=== PATIENT | female | born 1985 | race Caucasian/White ===

== ENCOUNTER 2016-11-11 06:19 | Emergency (ER) | payer OTHER ==
[2016-11-11 07:11] VITALS: TEMP 97.9; BMI 29.2
[2016-11-11 07:43] LABS: URINE APPEARANCE CLOUDY; URINE BILIRUBIN NEGATIVE (NEGATIVE); URINE COLOR YELLOW; URINE GLUCOSE (UA) NEGATIVE (NEGATIVE); URINE KETONE NEGATIVE (NEGATIVE); URINE NITRITE POSITIVE (NEGATIVE); URINE UROBILINOGEN NEGATIVE E.U./dl (0.2-1.0)
[2016-11-11 07:48] LABS: URINE BLOOD 3+ (NEGATIVE); URINE LEUK ESTERASE 3+ (NEGATIVE); URINE PROTEIN 2+ (NEGATIVE)
[2016-11-11 07:51] LABS: URINE BACTERIA RARE /hpf (NONE SEEN); URINE MUCUS RARE; URINE RBC 336 /hpf (0-3); URINE WBC 916 /hpf (3-5); YEAST MODERATE
[2016-11-11] MEDS ORDERED: CEPHALEXIN MONOHYDRATE 500 MG CAPSULE (UD) PO ONE (07:51)
[2016-11-11] MEDS ORDERED: PHENAZOPYRIDINE HCL 100 MG TABLET (FP) PO ONE (07:51)
--- NOTE | 2016-11-11 07:52 | PDOC ---
History of Present Illness - General History Source: Patient Exam Limitations: No Limitations - History of Present Illness Initial Comments: 11/11/16 07:55 The patient is a 31 year old female with no significant past medical history who presents to the ED with complaints of dysuria and lower abdominal pain that began yesterday. She qualifies the pain as a pressure-like sensation. She also reports feeling febrile, but denies recording her temperature at home. She denies any nausea, vomiting, diarrhea. She denies any hematuria, urgency or frequency. The patient denies any flank pain. <Supriya Gleason - Last Filed: 11/11/16 07:59> <Charisma Pena - Last Filed: 11/12/16 10:04> - General Stated Complaint: ABD PAIN,URINARY PROBLEM Time Seen by Provider: 11/11/16 07:17 Past History <Supriya Gleason - Last Filed: 11/11/16 07:59> - Past Medical History Anemia: No Asthma: No Cancer: No Cardiac Disorders: No CVA: No COPD: No DVT: No Dementia: No Diabetes: No Dialysis: No GI Disorders: No Disorders: No HTN: No Hypercholesterolemia: No HIV: No Kidney Stones: No Liver Disease: No Psychiatric Problems: No Seizures: No Thyroid Disease: No Lung CA: No - Surgical History Abdominal Surgery: No Appendectomy: No Cardiac Surgery: No Cholecystectomy: No Gastric Stapling: No GI Surgery: No Lung Surgery: No Neurologic Surgery: No - Reproductive History (#): 1 Para: 2 Therapeutic (s) & number: No Spontaneous : 0 - Psycho/Social/Smoking Cessation Hx Anxiety: No Suicidal Ideation: No Smoking History: Never smoked Have you smoked in the past 12 months: No Information on smoking cessation initiated: No Hx Alcohol Use: No Drug/Substance Use Hx: No Substance Use Type: Alcohol Hx Substance Use Treatment: No <Charisma Pena - Last Filed: 11/12/16 10:04> - Past Medical History Allergies/Adverse Reactions: Allergies Allergy/AdvReac Type Severity Reaction Status Date / Time No Known Drug Allergies Allergy Verified 04/03/16 07:55 Home Medications: Ambulatory Orders Cephalexin Monohydrate [Keflex -] 500 mg PO BID #14 capsule 11/11/16 Review of Systems - Review of Systems Able to Perform ROS?: Yes Comments:: 11/11/16 07:55 GENERAL/CONSTITUTIONAL: No fever or chills. No weakness. HEAD, EYES, EARS, NOSE AND THROAT: No change in vision. No ear pain or discharge. No sore throat. CARDIOVASCULAR: No chest pain or shortness of breath. RESPIRATORY: No cough, wheezing, or hemoptysis. GASTROINTESTINAL: Present: lower abdominal pain No nausea, vomiting, diarrhea or constipation. GENITOURINARY: Present: dysuria No frequency, or change in urination. MUSCULOSKELETAL: No joint or muscle swelling or pain. No neck or back pain. SKIN: No rash NEUROLOGIC: No headache, vertigo, loss of consciousness, or change in strength/ sensation. ENDOCRINE: No increased thirst. No abnormal weight change. HEMATOLOGIC/LYMPHATIC: No anemia, easy bleeding, or history of blood clots. ALLERGIC/IMMUNOLOGIC: No hives or skin allergy. All Other Systems: Reviewed and Negative <Supriya Gleason - Last Filed: 11/11/16 07:59> *Physical Exam - Vital Signs Last Vital Signs Temp Pulse Resp BP Pulse Ox 97.9 F 109 H 18 104/68 100 11/11/16 07:01 11/11/16 07:01 11/11/16 07:01 11/11/16 07:01 11/11/16 07:01 - Physical Exam Comments: 11/11/16 07:56 GENERAL: Awake, alert, and fully oriented, in no acute distress HEAD: No signs of trauma EYES: PERRLA, EOMI, sclera anicteric, conjunctiva clear ENT: Auricles normal inspection, hearing grossly normal, nares patent, oropharynx clear without exudates. Moist mucosa NECK: Normal ROM, supple, no lymphadenopathy, JVD, or masses LUNGS: Breath sounds equal, clear to auscultation bilaterally. No wheezes, and no crackles HEART: Regular rate and rhythm, normal S1 and S2, no murmurs, rubs or gallops ABDOMEN: Soft, superpubic tenderness to palpation, normoactive bowel sounds. No guarding, no rebound. No masses EXTREMITIES: Normal range of motion, no edema. No clubbing or cyanosis. No cords, erythema, or tenderness NEUROLOGICAL: Cranial nerves II through XII grossly intact. Normal speech, normal gait SKIN: Warm, Dry, normal turgor, no rashes or lesions noted. <Supriya Gleason - Last Filed: 11/11/16 07:59> - Vital Signs Last Vital Signs Temp Pulse Resp BP Pulse Ox 97.9 F 109 H 18 104/68 100 11/11/16 07:01 11/11/16 07:01 11/11/16 07:01 11/11/16 07:01 11/11/16 07:01 <Charisma Pena - Last Filed: 11/12/16 10:04> ED Treatment Course - ADDITIONAL ORDERS Additional order review: Laboratory Results 11/11/16 07:32 Urine Color Yellow Urine Appearance Cloudy Urine pH 5.0 Urine Protein 2+ H Urine Glucose (UA) Negative Urine Ketones Negative Urine Blood 3+ H Urine Nitrite Positive Urine Bilirubin Negative Urine Urobilinogen Negative Ur Leukocyte Esterase 3+ H Urine HCG, Qual Negative <Supriya Gleason - Last Filed: 11/11/16 07:59> - ADDITIONAL ORDERS Additional order review: Laboratory Results 11/11/16 07:32 Urine Color Yellow Urine Appearance Cloudy Urine pH 5.0 Urine Protein 2+ H Urine Glucose (UA) Negative Urine Ketones Negative Urine Blood 3+ H Urine Nitrite Positive Urine Bilirubin Negative Urine Urobilinogen Negative Ur Leukocyte Esterase 3+ H Urine HCG, Qual Negative <Charisma Pena - Last Filed: 11/12/16 10:04> Medical Decision Making - Medical Decision Making Pt afebrile, no vomiting, and no CVAT. Will treat with PO abx. Stable for DC home. <Charisma Pena - Last Filed: 11/12/16 10:04> *DC/Admit/Observation/Transfer - Attestations Scribe Attestion: 11/11/16 07:56 Documentation prepared by Supriya Gleason, acting as medical advisor for Charisma Pena MD. <Supriya Gleason - Last Filed: 11/11/16 07:59> - Discharge Dispostion Admit: No <Charisma Pena - Last Filed: 11/12/16 10:04> Diagnosis at time of Disposition: UTI (urinary tract infection) Qualifiers: Urinary tract infection type: acute cystitis Hematuria presence: without hematuria Qualified Code(s): N30.00 - Acute cystitis without hematuria - Discharge Dispostion Disposition: HOME Condition at time of disposition: Stable - Prescriptions Prescriptions: Cephalexin Monohydrate [Keflex -] 500 mg PO BID #14 capsule - Referrals Referrals: Rita Vanessa MD [Primary Care Provider] - - Patient Instructions Printed Discharge Instructions: DI for Urinary Tract Infection (UTI) Additional Instructions: FOR THE PAIN, YOU CAN TAKE IBUPROFEN, OR ALSO CAN USE AZO, WHICH IS AVAILABLE OVER THE COUNTER. THE AZO WILL HELP WITH THE BURNING, BUT YOUR URINE AND SWEAT WILL TURN ORANGE.
[2016-11-11] MEDS ORDERED: CEPHALEXIN MONOHYDRATE 250 MG CAPSULE (FP) ONE (07:57)
[2016-11-11] MEDS ORDERED: PHENAZOPYRIDINE HCL 100 MG TABLET (FP) ONE (07:57)
[2016-11-11 08:09] VITALS: BP 136/82; PULSE 75
== END 2016-11-11 08:14 | disposition home or self-care (01) ==
LOC: JER 06:19
DX: N30.00 Acute cystitis without hematuria (principal); B96.89 Other specified bacterial agents as the cause of diseases classified elsewhere
CPT/HCPCS: 81003; 81015; 84703; 87086; 87186; 99283-25

== ENCOUNTER 2017-06-21 02:11 | Emergency (ER) | payer OTHER ==
[2017-06-21 02:54] VITALS: BP 105/57; PULSE 75; TEMP 99.6
--- NOTE | 2017-06-21 03:58 | PDOC ---
History of Present Illness - General Chief Complaint: Diarrhea Stated Complaint: STOMACH PAIN/DIARRHEA Time Seen by Provider: 06/21/17 03:53 - History of Present Illness Initial Comments: 06/21/17 03:57 32 yo F with no significant pmh who presents with diarrhea. Patient reports acute onset of abdominal pain this AM with two episodes of watery, non bloody, stools. Also endorses sharp midline, unremitting, lower abdominal pain with no identifiable triggers or alleviators. No postprandial pain. No change in diet or recent traveling. Denies N/V, dysuira hematuria,pelvic pain, vaginal bleeding , dysmennorhea, CP, SOB, lightheadedness. Patient reports two flu + children sick contacts. Myomectomy and L ovarian cystectomy 2016. Denies h/o tobacco use or alcohol use. Past History - Past Medical History Allergies/Adverse Reactions: Allergies Allergy/AdvReac Type Severity Reaction Status Date / Time No Known Drug Allergies Allergy Verified 06/21/17 02:51 Home Medications: Ambulatory Orders Cephalexin [Keflex] 500 mg PO BID 7 Days #13 capsule MDD 2 Tab 06/21/17 Anemia: No Asthma: No Cancer: No Cardiac Disorders: No CVA: No COPD: No DVT: No Dementia: No Diabetes: No Dialysis: No GI Disorders: No Disorders: No HTN: No Hypercholesterolemia: No Kidney Stones: No Liver Disease: No Psychiatric Problems: No Seizures: No Thyroid Disease: No Lung CA: No - Surgical History Abdominal Surgery: No Appendectomy: No Cardiac Surgery: No Cholecystectomy: No Gastric Stapling: No GI Surgery: No Lung Surgery: No Neurologic Surgery: No - Reproductive History (#): 1 Para: 2 Therapeutic (s) & number: No Spontaneous : 0 - Suicide/Smoking/Psychosocial Hx Smoking History: Never smoked Have you smoked in the past 12 months: No Information on smoking cessation initiated: No Hx Alcohol Use: No Drug/Substance Use Hx: No Substance Use Type: Alcohol Hx Substance Use Treatment: No Review of Systems - Review of Systems Comments:: 06/21/17 03:57 GENERAL/CONSTITUTIONAL: No fever or chills. No weakness. HEAD, EYES, EARS, NOSE AND THROAT: No change in vision. No ear pain or discharge. No sore throat.- CARDIOVASCULAR: No chest pain or shortness of breath RESPIRATORY: No cough, wheezing, or hemoptysis. GASTROINTESTINAL: + abdominal pain and diarrhea. No nausea, vomiting, constipation. GENITOURINARY: No dysuria, frequency, or change in urination. MUSCULOSKELETAL: No joint or muscle swelling or pain. No neck or back pain. SKIN: No rash NEUROLOGIC: No headache, vertigo, loss of consciousness, or change in strength/ sensation. ENDOCRINE: No increased thirst. No abnormal weight change HEMATOLOGIC/LYMPHATIC: No anemia, easy bleeding, or history of blood clots. ALLERGIC/IMMUNOLOGIC: No hives or skin allergy. *Physical Exam - Vital Signs Last Vital Signs Temp Pulse Resp BP Pulse Ox 99.6 F 75 20 105/57 100 06/21/17 02:52 06/21/17 02:52 06/21/17 02:52 06/21/17 02:52 06/21/17 02:52 - Physical Exam Comments: 06/21/17 03:58 GENERAL: Awake, alert, and fully oriented, in no acute distress HEAD: No signs of trauma, normocephalic, atraumatic EYES: PERRLA, EOMI, sclera anicteric, conjunctiva clear ENT: Hearing grossly normal, nares patent, oropharynx clear without exudates. Moist mucosa NECK: Normal ROM, supple, no lymphadenopathy, JVD, or masses LUNGS: No distress, speaks full sentences, clear to auscultation bilaterally HEART: Regular rate and rhythm, normal S1 and S2, no murmurs, rubs or gallops, peripheral pulses normal and equal bilaterally. ABDOMEN: Soft, suprapubic ttp. RUQ>RLQ ttp. R flank pain. Normoactive bowel sounds. No guarding, no rebound. No masses. Neg rigidity.Neg EXTREMITIES : Normal inspection, Normal range of motion, no edema. No clubbing or cyanosis. SKIN: Warm, Dry, normal turgor, no rashes or lesions noted. ED Treatment Course - LABORATORY CBC & Chemistry Diagram: 06/21/17 05:05 06/21/17 05:05 Medical Decision Making - Medical Decision Making 06/21/17 04:49 32 yo F with no significant pmh who presents with acute onset of sharp, midline , unremitting, lower abdominal pain this AM with two episodes of watery, non bloody, stools. No identifiable triggers or alleviators. . No change in diet or recent traveling. Denies N/V, dysuria, hematuria, pelvic pain, vaginal bleeding , dysmennorhea, CP, SOB, lightheadedness. Denies alcohol use. Physical exam with RUQ>RLQ ttp and suprapubic ttp. Hemodynamically stable. DDx: Viral gastroenteritis, UTI, choleycystitis ED Course: CBC, CMP, Lipase, UA, BHCG RUQ U/S 06/21/17 05:44 UA: Nitrite +, 3 + blood, 2 + Leuk esterase 06/21/17 05:53 Cephalexin 500 mg PO 06/21/17 06:09 CBC: Unremarkable 06/21/17 06:12 Patient refused CBC. Blood work hemolyzed. Patient stable for discharge with return precautions. Sent Keflex to pharmacy. *DC/Admit/Observation/Transfer Diagnosis at time of Disposition: Cystitis - Discharge Dispostion Disposition: HOME Condition at time of disposition: Stable Admit: No - Prescriptions Prescriptions: Cephalexin [Keflex] 500 mg PO BID 7 Days #13 capsule MDD 2 Tab - Referrals - Patient Instructions Printed Discharge Instructions: DI for Hemorrhagic Cystitis Additional Instructions: Please return to the emergency department with any new or worsening symptoms or concerns. Please take Keflex two times a day for 7 days. Please follow up with your primary care physician within one week. - Post Discharge Activity - Attestations Physician Attestion: 06/21/17 06:11 I attest to the documentation provided in this note.
[2017-06-21] MEDS ORDERED: SODIUM CHLORIDE 1,000 ML IV STA (04:36)
[2017-06-21 04:54] LABS: URINE APPEARANCE SLCLOUDY; URINE BILIRUBIN NEGATIVE (NEGATIVE); URINE BLOOD 3+ (NEGATIVE); URINE COLOR YELLOW; URINE GLUCOSE (UA) NEGATIVE (NEGATIVE); URINE KETONE NEGATIVE (NEGATIVE); URINE NITRITE POSITIVE (NEGATIVE); URINE UROBILINOGEN NEGATIVE mg/dL (0.2-1.0)
[2017-06-21 05:02] LABS: URINE LEUK ESTERASE 2+ (NEGATIVE); URINE PROTEIN 2+ (NEGATIVE)
[2017-06-21 05:04] LABS: EPI CELLS RARE /HPF (FEW); URINE BACTERIA MANY /hpf (NONE SEEN); URINE MUCUS RARE; YEAST MODERATE
--- NOTE | 2017-06-21 05:23 | PDOC ---
Attending Attestation - HPI HPI: 06/21/17 05:30 Patient is a 32F, with PMHx of myomectomy 1 year ago, fibroids, who presents with lower abdominal pain earlier today. Patients presents with acute onset, sharp, lower abdominal pain since this morning. She also reports two episodes of non-bloody watery stools. Denies diet changes. Patient also admits to subjective fevers at home. Patient reports sick contact - states sister has flu. Denies recent nausea, vomiting, urinary complaints, pelvic pain, vaginal bleeding. <Natalie Lim - Last Filed: 06/21/17 05:30> - Resident Resident Name: Jeffery Vicente - ED Attending Attestation I have performed the following: I have examined & evaluated the patient, The case was reviewed & discussed with the resident, I agree w/resident's findings & plan, Exceptions are as noted - Physicial Exam PE: 06/21/17 19:52 *Physical Exam General Appearance: Yes: Appropriately Dressed. No: Apparent Distress, Intoxicated HEENT: positive: EOMI, KATHERYN, Normal ENT Inspection, Normal Voice, TMs Normal, Pharynx Normal. negative: Pale Conjunctivae, Photophobia, Scleral Icterus (R), Scleral Icterus (L) Neck: positive: Trachea midline, Normal Thyroid, Supple. negative: Tender, Rigid, Carotid bruit, Stridor, Lymphadenopathy (R), Lymphadenopathy (L), Thyromegaly Respiratory/Chest: positive: Lungs Clear, Normal Breath Sounds. negative: Chest Tender, Respiratory Distress, Accessory Muscle Use, Labored Respiration, RES, Crackles, Rales, Rhonchi, Stridor, Wheezing, Dullness Cardiovascular: positive: Regular Rhythm, Regular Rate, S1, S2. negative: Edema , JVD, Murmur, Bradycardia, Tachycardia Vascular Pulses: Dorsalis-Pedis (R): 2+, Doralis-Pedis (L): 2+ Gastrointestinal/Abdominal: positive: Normal Bowel Sounds, Flat, Soft. negative : Tender, Organomegaly, Pulsatile Mass, Increased Bowel Sounds, Decreased BS, Distended, Guarding, Rebound, Hernia, Hepatomegaly, Spleenomegaly Lymphatic: negative: Adenopathy, Tenderness Musculoskeletal: positive: Normal Inspection. negative: CVA Tenderness, Decreased Range of Motion Extremity: positive: Normal Capillary Refill, Normal Inspection, Normal Range of Motion, Pelvis Stable. negative: Tender, Pedal Edema, Swelling, Erythema Integumentary: positive: Normal Color, Dry, Warm. 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 negative: EOM Palsy, Facial Droop, Sensory Deficit* Physical Exam - Medical Decision Making 06/21/17 19:53 Pt treated and released <Manolo Ritchie - Last Filed: 06/21/17 19:53>
[2017-06-21] MEDS ORDERED: CEPHALEXIN 250 MG/5 ML ORAL SUSPENSION PO ONE (05:48)
[2017-06-21 05:49] LABS: BASO % 0.6 % (0-2.0); EOS % 1.3 % (0-4.5); HEMATOCRIT 40.4 % (32.4-45.2); HEMOGLOBIN 13.6 GM/dL (10.7-15.3); LYMPH % 10.2 % (8-40); MCH 28.3 pg (25.7-33.7); MCHC 33.7 g/dl (32.0-36.0); MEAN PLT VOLUME 8.9 fl (7.5-11.1); MONO % 4.3 % (3.8-10.2); NEUT % 83.6 % (42.8-82.8); PLATELET COUNT 296 K/MM3 (134-434); RBC 4.81 M/mm3 (3.60-5.2); RDW 13.4 % (11.6-15.6)
[2017-06-21] MEDS ORDERED: CEPHALEXIN MONOHYDRATE 250 MG CAPSULE (FP) ONE (05:55)
== END 2017-06-21 06:38 | disposition home or self-care (01) ==
LOC: JER 02:11
PROC: 3E0337Z Introduction of Electrolytic and Water Balance Substance into Peripheral Vein, Percutaneous Approach (ICD-10-PCS; principal; 2017-06-21)
DX: N30.00 Acute cystitis without hematuria (principal)
CPT/HCPCS: 36415; 81003; 81015; 84703; 85025; 87804; 99283-25

== ENCOUNTER 2017-06-24 16:13 | Emergency (ER) | payer OTHER ==
[2017-06-24 16:32] VITALS: BP 137/85; PULSE 122; TEMP 99.3; BMI 30.9
--- NOTE | 2017-06-24 17:17 | PDOC ---
History of Present Illness - General Chief Complaint: Sore Throat Stated Complaint: COLD SYMPTOMS History Source: Patient Exam Limitations: No Limitations - History of Present Illness Initial Comments: 06/24/17 17:17 This 32-year-old female presents to the emergency room with complaints of fever , chills, tiredness and not feeling well with a runny nose for the last 2 days. She was seen here as well as her younger daughters and found to have positive flu in the children and a positive UTI for her. They had been treated with Tamiflu and now she is showing the symptoms of her children's flu. Past History - Past Medical History Allergies/Adverse Reactions: Allergies Allergy/AdvReac Type Severity Reaction Status Date / Time No Known Drug Allergies Allergy Verified 06/24/17 16:32 Home Medications: Ambulatory Orders Cephalexin [Keflex] 500 mg PO BID 7 Days #14 capsule MDD 2 Tab 06/21/17 Oseltamivir Phosphate [Tamiflu] 75 mg PO BID 5 Days #10 capsule 06/24/17 Anemia: No Asthma: No Cancer: No Cardiac Disorders: No CVA: No COPD: No DVT: No Dementia: No Diabetes: No Dialysis: No GI Disorders: No Disorders: No HTN: No Hypercholesterolemia: No Kidney Stones: No Liver Disease: No Psychiatric Problems: No Seizures: No Thyroid Disease: No Lung CA: No - Surgical History Abdominal Surgery: No Appendectomy: No Cardiac Surgery: No Cholecystectomy: No Gastric Stapling: No GI Surgery: No Lung Surgery: No Neurologic Surgery: No - Reproductive History (#): 1 Para: 2 Therapeutic (s) & number: No Spontaneous : 0 - Suicide/Smoking/Psychosocial Hx Smoking History: Never smoked Have you smoked in the past 12 months: No Hx Alcohol Use: No Drug/Substance Use Hx: No Substance Use Type: Alcohol Hx Substance Use Treatment: No Review of Systems - Review of Systems Able to Perform ROS?: Yes Comments:: 06/24/17 17:18 General statement: flu symptoms Hematology: neg history of bleeding/blood thinners Skin: Neg for lesions, rash, bruising. HEENT: Neg symptoms Respiratory: Neg SOB or difficulty in breathing Cardiac: Neg chest pain GI: Neg pain, n/v : Neg problems on voiding MS: Neg for joint pain/stiffness, no edema Neuro: Neg for LOC, weakness, Endocrine: Neg for excess thirst/hunger, cold/heat intolerance, excess sweating Allergies: Neg for allergies *Physical Exam - Vital Signs Last Vital Signs Temp Pulse Resp BP Pulse Ox 99.3 F 122 H 20 137/85 99 06/24/17 16:29 06/24/17 16:29 06/24/17 16:29 06/24/17 16:29 06/24/17 16:29 - Physical Exam Comments: 06/24/17 17:19 General Appearance: This ill-appearing V/S: hemodynamically stable, febrile Skin: WNL of pt's skin color, no signs of pallor, mottling, cyanosis Head:symmetrical Eyes: EOM's intact, PERRLA Ears: denies pain Nose: patent Throat: lips, teeth, gums, tongue, buccal mucos pink and moist Lungs: Chest symmetry equal. Cap refill <3 seconds. Lung sounds clear Cardiac: PMI at R 4MCL space, pos S1 and S2, regular rate. Abdomen: Soft, round, nontender : Not observed Muscularskeletal: Gait steady, ambulated in to ER, no edema +PMS Neuro: AAOx3, cognitively intact, speech clear and appropriate. Medical Decision Making - Medical Decision Making 06/24/17 17:20 Patient was recently treated for UTI on Keflex she is now completed. Her 2 younger children and been treated for flu. At this time and going to treat her for flu as well. *DC/Admit/Observation/Transfer Diagnosis at time of Disposition: Influenza - Discharge Dispostion Disposition: HOME Condition at time of disposition: Good Admit: No - Prescriptions Prescriptions: Oseltamivir Phosphate [Tamiflu] 75 mg PO BID 5 Days #10 capsule - Referrals - Patient Instructions Printed Discharge Instructions: DI for Influenza -- Adult Additional Instructions: Discharge instructions 1. Please follow up with your primary physician within the next few days and explain that you have been seen here in the Emergency Room. 2. If you experience any worsening of symptoms, please return to the ER 3. Rest, wash hands, take tamiflu as directed. 4. Drink plenty of water - Post Discharge Activity Forms/Work/School Notes: Back to Work
== END 2017-06-24 17:21 | disposition home or self-care (01) ==
LOC: JERFT 16:13
DX: J11.1 Influenza due to unidentified influenza virus with other respiratory manifestations (principal)
CPT/HCPCS: 99281-25